=== PATIENT | male | born 1995 | race Caucasian/White ===

== ENCOUNTER 2016-05-19 12:21 | Emergency (ER) | payer OTHER ==
[2016-05-19] MEDS ORDERED: PERCOCET 5MG/325MG TAB As Ordered ONE ×2 (12:53→18:11)
[2016-05-19] MEDS ORDERED: KETOROLAC 30 MG/ML VIAL (J1885) As Ordered ONE (12:53)
[2016-05-19 13:26] LABS: BASO % 0.3 % (0.0-1.0); EOS # 0.2 K/mm3 (0.0-0.50); EOS % 1.7 % (0.0-3.0); LARGE UNSTAINED CELL # 0.2 K/mm3 (0.0-0.4); LARGE UNSTAINED CELL % 1.8 % (0.0-4.0); LYMPH # 2.8 K/mm3 (1.5-6.5); LYMPH % 25.3 % (24.0-44.0); MEAN CORPUSCULAR HEMOGLOBIN 29.5 pg (27.0-33.0); MEAN CORPUSCULAR HGB CONC 33.8 g/dl (32.0-36.5); MEAN CORPUSCULAR VOLUME 87.2 fl (80.0-96.0); MONO # 0.6 K/mm3 (0.0-0.8); MONO % 5.9 % (0.0-5.0); NEUTROPHILS # 6.7 K/mm3 (1.8-7.7); NEUTROPHILS % 65.1 % (36.0-66.0); PLATELET COUNT, AUTOMATED 342 k/mm3 (150-450); RED CELL DISTRIBUTION WIDTH 12.2 % (11.5-14.5); WHITE BLOOD COUNT 10.2 K/mm3 (4.0-10.0)
[2016-05-19 13:47] LABS: ALBUMIN/GLOBULIN RATIO 1.18 (1.00-1.93); ALKALINE PHOSPHATASE 94 U/L (45-117); ALT/SGPT 38 U/L (12-78); ANION GAP 9 MEQ/L (8-16); AST/SGOT 29 U/L (15-37); BILIRUBIN,DIRECT 0.1 MG/DL (0.0-0.2); BILIRUBIN,TOTAL 0.4 MG/DL (0.2-1.0); BLOOD UREA NITROGEN 15 MG/DL (7-18); CALCIUM LEVEL 9.3 MG/DL (8.5-10.1); CARBON DIOXIDE LEVEL 28 MEQ/L (21-32); CHLORIDE LEVEL 101 MEQ/L (98-107); CREATININE FOR GFR 1.49 MG/DL (0.70-1.30); GLOMERULAR FILTRATION RATE > 60.0 (>60); GLUCOSE, FASTING 124 MG/DL (70-105); POTASSIUM SERUM 3.7 MEQ/L (3.5-5.1); SODIUM LEVEL 138 MEQ/L (136-145); TOTAL PROTEIN 7.4 GM/DL (6.4-8.2)
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
--- NOTE | 2016-05-19 15:05 | REP ---
CT LUMBAR SPINE WITHOUT CONTRAST: HISTORY: Trauma. There is no disc bulge or herniation at the L1-2 through L5-S1 levels. The nerves exit the neural foramina without compression. A diffuse disc bulge is present at the L4-5 level. There is minimal compression of the thecal sac. The L4 nerves exit the neural foramina without compression. The L4-5 intervertebral disc is decreased in height consistent with disc degeneration. There is no acute fracture or subluxation. IMPRESSION: 1. Diffuse disc bulge at the L4-5 level with minimal thecal sac compression. 2. There is no acute fracture or subluxation. Signed by Javi Watson MD 05/19/2016 03:30 P
[2016-05-19] MEDS ORDERED: fentaNYL 100 MCG/2 ML INJECTION (J3010) As Ordered ONE ×2 (15:13→18:11)
--- NOTE | 2016-05-19 15:13 | REP ---
CT THORACIC SPINE WITHOUT CONTRAST: HISTORY: Trauma. There is no acute fracture or subluxation. There are old compression fractures of the T8 and 10 vertebral bodies with minimal height loss. There is no definite disc bulge or herniation. The spinal canal and the neural foramina are patent. There is loss of height of several mid and lower thoracic intervertebral discs. Vacuum phenomenon is present. Schmorl's nodes are present in the T8-10 vertebral bodies. Small anterior osteophytes are present in the lower thoracic spine. There are 13 rib bearing vertebral bodies. IMPRESSION: There is no acute fracture or subluxation. Signed by Javi Watson MD 05/19/2016 03:49 P
--- NOTE | 2016-05-19 19:05 | REP ---
MRI THORACIC SPINE WITHOUT CONTRAST: HISTORY: Injury. COMPARISON: CT 05/19/2016. The examination is very limited secondary to motion. A small central disc protrusion is present at the T7-8 level. There is minimal effacement of the thecal sac without spinal cord compression. The T7 neural foramina are patent. A small left paracentral disc protrusion is present at the T8-9 level. There is minimal effacement of the thecal sac without spinal cord compression. The T8 neural foramina are patent. There is no other disc bulge or herniation. The remaining neural foramina are patent. The spinal cord is normal in signal intensity. There is no intradural extramedullary lesion. There are old compression fractures of the T8 and T10 vertebral bodies with minimal height loss. Schmorl's nodes are present in the T8 through T10 vertebral bodies. Small anterior osteophytes are present in the lower thoracic spine. IMPRESSION: 1. Limited examination demonstrating small disc protrusions at the T7-8 and T8-9 levels without spinal cord compression. 2. Old T8 and T10 compression fractures with minimal height loss. Signed by Javi Watson MD 05/20/2016 08:05 A
--- NOTE | 2016-05-19 19:11 | REP ---
MRI LUMBAR SPINE WITHOUT CONTRAST: HISTORY: Injury. COMPARISON: CT 05/19/2016 Decreased signal intensity on T2-weighted images is present in the L4-5 intervertebral disc. The disc is decreased in height. These findings are consistent with disc degeneration. There is no disc bulge or herniation at the L1-2 through L3-4 and L5-S1 levels. The nerves exit the neural foramina without compression. A diffuse disc bulge is present at the L4-5 level. There is minimal compression of the thecal sac. The L4 nerves exit the neural foramina without compression. The conus medullaris is normal in appearance terminating at the level of the T12-L1 intervertebral disc. Normal signal intensity is present in the lumbar vertebral bodies. IMPRESSION: Diffuse disc bulge at the L4-5 level with minimal thecal sac compression. Signed by Javi Watson MD 05/20/2016 08:03 A
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
--- NOTE | 2016-05-19 20:21 | EDDOCDS ---
Physician Documentation [facility] Name: Reuben Soto Age: 21 yrs Sex: Male : 1995 Arrival Date: 05/19/2016 Time: 12:21 Bed 11 Private MD: Adriel Roberson M Disposition: 05/19 20:12 Critical Care: Critical care not applicable. le Disposition: 05/19/16 19:54 Discharged to Home/Self Care. Impression: Other intervertebral disc displacement, lumbar region - diffuse disc bulge L4-L5 with min. thecal sac compression, Other intervertebral disc displacement, thoracic region - small disc protrusion T7-T7 & T8-T9 without cord compression, Long QT syndrome, Abnormal finding of blood chemistry, unspecified - elevated creatinine. - Condition is Stable. - Discharge Instructions: Herniated Disk, Long QT Syndrome. - Prescriptions for Percocet 5- 325 mg Oral Tablet - take 1 tablet by ORAL route every 6 hours As needed MDD: 4 tabs; 20 tablet. - Medication Reconciliation, Work Release Form - 1 day, Local Pharmacy Hours, Paulette Johnson/[facility], [place] form. - Follow up: Paulette Johnson, [facility]; When: Tomorrow; Reason: Recheck today's complaints, Continuance of care. - Problem is new. - Symptoms have improved. - Notes: Return to the ED for loss of bowel/bladder control, numbness in genital area, inability to walk due to leg weakness/foot drop, feinting episodes, palpitations or any other concerns Historical: - Allergies: no known allergies; - Home Meds: 1. ibuprofen 800 mg Oral tab (Last dose: 05/19/2016 06:00) 2. Flexeril 10 mg Oral tab 1 tab (Last dose: 05/19/2016 06:00) - PMHx: none; - PSHx: left foot surgery; right wrist surgery; - Social history: Smoking status: Patient uses tobacco products, heavy tobacco smoker. No barriers to communication noted, The patient speaks fluent Icelandic, Speaks appropriately for age. - Family history: Not pertinent. - : The pt / caregiver states he / she is not on anticoagulants. Home medication list is obtained from the patient, Note patient was given medication by medics this am . - Exposure Risk Screening:: None identified. Vital Signs: 12:23 BP 169 / 93; Pulse 94; Resp 18 S; Temp 97.8(O); Pulse Ox 95% on R/A; Weight 81.65 kg / gr2 180.01 lbs (R); Height 5 ft. 11 in. (180.34 cm) (R); Pain 9/10; 14:13 Pain 8/10; ja5 14:13 Pain 8/10; ja5 16:22 Pain 7/10; ja5 16:36 BP 114 / 55; Pulse 76; Resp 16; Temp 97.6(TE); Pulse Ox 94% on R/A; Pain 7/10; ja5 18:44 Pain 7/10; ja5 18:44 Pain 7/10; ja5 20:10 BP 116 / 56; Pulse 74; Resp 16; Temp 97.9(O); Pulse Ox 100% on R/A; Pain 2/10; tm5 12:23 Body Mass Index 25.10 (81.65 kg, 180.34 cm) gr2 MDM: 12:51 IV Saline Lock ordered. le 12:51 ketorolac 30 mg IVP once ordered. le 12:51 Diazepam 5 mg IVP once ordered. le 12:51 oxyCODONE-acetaminophen 5 mg-325 mg 1 tabs PO once ordered. le 12:52 CT Spine,Thoracic W/o Contrast Ordered. EDMS 12:52 CT Spine, Lumbar W/o Contrast Ordered. EDMS 13:01 CBC with Diff Ordered. EDMS 13:01 BMP Ordered. EDMS 13:01 Liver Profile Ordered. EDMS 13:01 Lipase Ordered. EDMS 13:01 UA Ordered. EDMS 13:01 Chest, 2 View (pa\E\lat) Ordered. EDMS 13:01 ECG WITH READING ER PHYS+CARDIAG ordered. EDMS 13:35 CBC with Diff Reviewed. le 14:18 fentaNYL (PF) 50 mcg IVP once ordered. le 14:19 BMP Reviewed. le 14:19 UA Reviewed. le 14:19 Liver Profile Reviewed. le 14:19 Lipase Reviewed. le 14:19 Chest, 2 View (pa\E\lat) Reviewed. le 14:19 NS 0.9% 1000 ml IV at bolus once ordered. le 14:23 MRI Screening Tool - Place on chart, inform RN ordered. le 14:24 -MRI-Spine, Lumbar without contrast Ordered. EDMS 14:24 -MRI-Spine,Thoracic without contrast Ordered. EDMS 15:22 MRI Screening Tool - Place on chart, inform RN complete. lr2 15:46 Financial registration complete. zo 15:55 [facility] Payment Agreement was scanned into [employer] and attached to record. zo 17:12 REGULAR+DIET ordered. EDMS 18:08 fentaNYL (PF) 50 mcg IVP once ordered. le 18:08 oxyCODONE-acetaminophen 5 mg-325 mg 1 tabs PO once ordered. le Administered Medications: 13:08 Drug: ketorolac 30 mg [ketorolac 30 mg/mL (1 mL) injection solution (1 mL)] Route: IVP; ja5 Site: left antecubital; 14:13 Follow up: Pain 8/10 Adult ja5 13:08 Drug: Diazepam 5 mg [diazepam 5 mg/mL injection syringe (1 mL)] Route: IVP; Site: left ja5 antecubital; 13:08 Drug: oxyCODONE-acetaminophen 1 tabs [oxycodone-acetaminophen 5 mg-325 mg tablet (1 ja5 tabs)] Route: PO; 14:13 Follow up: Pain 8/10 Adult ja5 15:21 Drug: NS 0.9% 1000 ml [sodium chloride 0.9 % intravenous solution] Route: IV; Rate: 5 bolus; Site: left antecubital; 19:07 Follow up: IV Status: Completed infusion 5 15:22 Drug: fentaNYL (PF) 50 mcg [fentanyl (PF) 50 mcg/mL injection solution (1 mL)] Route: ja5 IVP; Site: left antecubital; 16:22 Follow up: Pain 7/10 Adult ja5 18:18 Drug: fentaNYL (PF) 50 mcg [fentanyl (PF) 50 mcg/mL injection solution (1 mL)] Route: ja5 IVP; Site: left antecubital; 18:44 Follow up: Pain 7/10 Adult ja5 18:18 Drug: oxyCODONE-acetaminophen 1 tabs [oxycodone-acetaminophen 5 mg-325 mg tablet (1 ja5 tabs)] Route: PO; 18:44 Follow up: Pain 7/10 Adult ja5 Signatures: Dispatcher [employer] EDMS Fabian Adame Lisa, IMMIGRATION CASE WORKER IMMIGRATION CASE WORKER Cristela Hanson RN RN hs1 Nu Wong, RN RN jc4 Katja Tang,RN RN tm5 Rosie Shabazz2 Nya June RN ja5 The chart was reviewed and I authenticate all verbal orders and agree with the evaluation and treatment provided.Attachments: 15:55 [facility] Payment Agreement zo MTDD
--- NOTE | 2016-05-20 21:38 | ECGEPIP ---
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
--- NOTE | 2016-05-21 21:22 | EDDOCDS ---
Physician Documentation [facility] Name: Reuben Soto Age: 21 yrs Sex: Male : 1995 Arrival Date: 05/19/2016 Time: 12:21 Bed 11 Private MD: Adriel Roberson M Disposition: 05/19 20:12 Critical Care: Critical care not applicable. le Disposition: 05/19/16 19:54 Discharged to Home/Self Care. Impression: Other intervertebral disc displacement, lumbar region - diffuse disc bulge L4-L5 with min. thecal sac compression, Other intervertebral disc displacement, thoracic region - small disc protrusion T7-T7 & T8-T9 without cord compression, Long QT syndrome, Abnormal finding of blood chemistry, unspecified - elevated creatinine. - Condition is Stable. - Discharge Instructions: Herniated Disk, Long QT Syndrome. - Prescriptions for Percocet 5- 325 mg Oral Tablet - take 1 tablet by ORAL route every 6 hours As needed MDD: 4 tabs; 20 tablet. - Medication Reconciliation, Work Release Form - 1 day, Local Pharmacy Hours, Paulette Johnson/[facility], [place] form. - Follow up: Paulette Johnson, [facility]; When: Tomorrow; Reason: Recheck today's complaints, Continuance of care. - Problem is new. - Symptoms have improved. - Notes: Return to the ED for loss of bowel/bladder control, numbness in genital area, inability to walk due to leg weakness/foot drop, feinting episodes, palpitations or any other concerns Historical: - Allergies: no known allergies; - Home Meds: 1. ibuprofen 800 mg Oral tab (Last dose: 05/19/2016 06:00) 2. Flexeril 10 mg Oral tab 1 tab (Last dose: 05/19/2016 06:00) - PMHx: none; - PSHx: left foot surgery; right wrist surgery; - Social history: Smoking status: Patient uses tobacco products, heavy tobacco smoker. No barriers to communication noted, The patient speaks fluent Nepalese, Speaks appropriately for age. - Family history: Not pertinent. - : The pt / caregiver states he / she is not on anticoagulants. Home medication list is obtained from the patient, Note patient was given medication by medics this am . - Exposure Risk Screening:: None identified. Vital Signs: 12:23 BP 169 / 93; Pulse 94; Resp 18 S; Temp 97.8(O); Pulse Ox 95% on R/A; Weight 81.65 kg / gr2 180.01 lbs (R); Height 5 ft. 11 in. (180.34 cm) (R); Pain 9/10; 14:13 Pain 8/10; ja5 14:13 Pain 8/10; ja5 16:22 Pain 7/10; ja5 16:36 BP 114 / 55; Pulse 76; Resp 16; Temp 97.6(TE); Pulse Ox 94% on R/A; Pain 7/10; ja5 18:44 Pain 7/10; ja5 18:44 Pain 7/10; ja5 20:10 BP 116 / 56; Pulse 74; Resp 16; Temp 97.9(O); Pulse Ox 100% on R/A; Pain 2/10; tm5 12:23 Body Mass Index 25.10 (81.65 kg, 180.34 cm) gr2 MDM: 12:51 IV Saline Lock ordered. le 12:51 ketorolac 30 mg IVP once ordered. le 12:51 Diazepam 5 mg IVP once ordered. le 12:51 oxyCODONE-acetaminophen 5 mg-325 mg 1 tabs PO once ordered. le 12:52 CT Spine,Thoracic W/o Contrast Ordered. EDMS 12:52 CT Spine, Lumbar W/o Contrast Ordered. EDMS 13:01 CBC with Diff Ordered. EDMS 13:01 BMP Ordered. EDMS 13:01 Liver Profile Ordered. EDMS 13:01 Lipase Ordered. EDMS 13:01 UA Ordered. EDMS 13:01 Chest, 2 View (pa\E\lat) Ordered. EDMS 13:01 ECG WITH READING ER PHYS+CARDIAG ordered. EDMS 13:35 CBC with Diff Reviewed. le 14:18 fentaNYL (PF) 50 mcg IVP once ordered. le 14:19 BMP Reviewed. le 14:19 UA Reviewed. le 14:19 Liver Profile Reviewed. le 14:19 Lipase Reviewed. le 14:19 Chest, 2 View (pa\E\lat) Reviewed. le 14:19 NS 0.9% 1000 ml IV at bolus once ordered. le 14:23 MRI Screening Tool - Place on chart, inform RN ordered. le 14:24 -MRI-Spine, Lumbar without contrast Ordered. EDMS 14:24 -MRI-Spine,Thoracic without contrast Ordered. EDMS 15:22 MRI Screening Tool - Place on chart, inform RN complete. lr2 15:46 Financial registration complete. zo 15:55 [facility] Payment Agreement was scanned into [employer] and attached to record. zo 17:12 REGULAR+DIET ordered. EDMS 18:08 fentaNYL (PF) 50 mcg IVP once ordered. le 18:08 oxyCODONE-acetaminophen 5 mg-325 mg 1 tabs PO once ordered. le 0208 12:20 T-Sheet-- Draft Copy was scanned into [employer] and attached to record. gb 12:20 ECG/EKG was scanned into [employer] and attached to record. gb Administered Medications: 05/19 13:08 Drug: ketorolac 30 mg [ketorolac 30 mg/mL (1 mL) injection solution (1 mL)] Route: IVP; ja5 Site: left antecubital; 14:13 Follow up: Pain 8/10 Adult [facility] 13:08 Drug: Diazepam 5 mg [diazepam 5 mg/mL injection syringe (1 mL)] Route: IVP; Site: left ja5 antecubital; 13:08 Drug: oxyCODONE-acetaminophen 1 tabs [oxycodone-acetaminophen 5 mg-325 mg tablet (1 ja5 tabs)] Route: PO; 14:13 Follow up: Pain 8/10 Adult 5 15:21 Drug: NS 0.9% 1000 ml [sodium chloride 0.9 % intravenous solution] Route: IV; Rate: ja5 bolus; Site: left antecubital; 19:07 Follow up: IV Status: Completed infusion 5 15:22 Drug: fentaNYL (PF) 50 mcg [fentanyl (PF) 50 mcg/mL injection solution (1 mL)] Route: ja5 IVP; Site: left antecubital; 16:22 Follow up: Pain 7/10 Adult ja5 18:18 Drug: fentaNYL (PF) 50 mcg [fentanyl (PF) 50 mcg/mL injection solution (1 mL)] Route: ja5 IVP; Site: left antecubital; 18:44 Follow up: Pain 7/10 Adult ja5 18:18 Drug: oxyCODONE-acetaminophen 1 tabs [oxycodone-acetaminophen 5 mg-325 mg tablet (1 ja5 tabs)] Route: PO; 18:44 Follow up: Pain 7/10 Adult ja5 Signatures: Dispatcher [employer] EDMS Melissa Green, Reg Reg gb Deep, Darcy Hernandez, RN EMBEDDED RN EMBEDDED Cristela Hanson RN RN hs1 Nu Wong RN RN jc4 Katja Tang RN RN tm5 Rosie Shabazz lr2 Nya June RN ja5 The chart was reviewed and I authenticate all verbal orders and agree with the evaluation and treatment provided.Attachments: 15:55 [facility] Payment Agreement zo 05/20 12:20 T-Sheet-- Draft Copy gb 12:20 ECG/EKG gb Chart Complete MTDD
--- NOTE | 2016-05-21 21:22 | EDDOCDS ---
Physician Documentation [facility] Name: Reuben Soto Age: 21 yrs Sex: Male : 1995 Arrival Date: 05/19/2016 Time: 12:21 Bed 11 Private MD: Adriel Roberson M Disposition: 05/19 20:12 Critical Care: Critical care not applicable. le Disposition: 05/19/16 19:54 Discharged to Home/Self Care. Impression: Other intervertebral disc displacement, lumbar region - diffuse disc bulge L4-L5 with min. thecal sac compression, Other intervertebral disc displacement, thoracic region - small disc protrusion T7-T7 & T8-T9 without cord compression, Long QT syndrome, Abnormal finding of blood chemistry, unspecified - elevated creatinine. - Condition is Stable. - Discharge Instructions: Herniated Disk, Long QT Syndrome. - Prescriptions for Percocet 5- 325 mg Oral Tablet - take 1 tablet by ORAL route every 6 hours As needed MDD: 4 tabs; 20 tablet. - Medication Reconciliation, Work Release Form - 1 day, Local Pharmacy Hours, Pualette Johnson/[facility] form. - Follow up: Paulette Johnson, [facility]; When: Tomorrow; Reason: Recheck today's complaints, Continuance of care. - Problem is new. - Symptoms have improved. - Notes: Return to the ED for loss of bowel/bladder control, numbness in genital area, inability to walk due to leg weakness/foot drop, feinting episodes, palpitations or any other concerns Historical: - Allergies: no known allergies; - Home Meds: 1. ibuprofen 800 mg Oral tab (Last dose: 05/19/2016 06:00) 2. Flexeril 10 mg Oral tab 1 tab (Last dose: 05/19/2016 06:00) - PMHx: none; - PSHx: left foot surgery; right wrist surgery; - Social history: Smoking status: Patient uses tobacco products, heavy tobacco smoker. No barriers to communication noted, The patient speaks fluent Monegasque, Speaks appropriately for age. - Family history: Not pertinent. - : The pt / caregiver states he / she is not on anticoagulants. Home medication list is obtained from the patient, Note patient was given medication by medics this am . - Exposure Risk Screening:: None identified. Vital Signs: 12:23 BP 169 / 93; Pulse 94; Resp 18 S; Temp 97.8(O); Pulse Ox 95% on R/A; Weight 81.65 kg / gr2 180.01 lbs (R); Height 5 ft. 11 in. (180.34 cm) (R); Pain 9/10; 14:13 Pain 8/10; ja5 14:13 Pain 8/10; ja5 16:22 Pain 7/10; ja5 16:36 BP 114 / 55; Pulse 76; Resp 16; Temp 97.6(TE); Pulse Ox 94% on R/A; Pain 7/10; ja5 18:44 Pain 7/10; ja5 18:44 Pain 7/10; ja5 20:10 BP 116 / 56; Pulse 74; Resp 16; Temp 97.9(O); Pulse Ox 100% on R/A; Pain 2/10; tm5 12:23 Body Mass Index 25.10 (81.65 kg, 180.34 cm) gr2 MDM: 12:51 IV Saline Lock ordered. le 12:51 ketorolac 30 mg IVP once ordered. le 12:51 Diazepam 5 mg IVP once ordered. le 12:51 oxyCODONE-acetaminophen 5 mg-325 mg 1 tabs PO once ordered. le 12:52 CT Spine,Thoracic W/o Contrast Ordered. EDMS 12:52 CT Spine, Lumbar W/o Contrast Ordered. EDMS 13:01 CBC with Diff Ordered. EDMS 13:01 BMP Ordered. EDMS 13:01 Liver Profile Ordered. EDMS 13:01 Lipase Ordered. EDMS 13:01 UA Ordered. EDMS 13:01 Chest, 2 View (pa\E\lat) Ordered. EDMS 13:01 ECG WITH READING ER PHYS+CARDIAG ordered. EDMS 13:35 CBC with Diff Reviewed. le 14:18 fentaNYL (PF) 50 mcg IVP once ordered. le 14:19 BMP Reviewed. le 14:19 UA Reviewed. le 14:19 Liver Profile Reviewed. le 14:19 Lipase Reviewed. le 14:19 Chest, 2 View (pa\E\lat) Reviewed. le 14:19 NS 0.9% 1000 ml IV at bolus once ordered. le 14:23 MRI Screening Tool - Place on chart, inform RN ordered. le 14:24 -MRI-Spine, Lumbar without contrast Ordered. EDMS 14:24 -MRI-Spine,Thoracic without contrast Ordered. EDMS 15:22 MRI Screening Tool - Place on chart, inform RN complete. lr2 15:46 Financial registration complete. zo 15:55 [facility] Payment Agreement was scanned into [employer] and attached to record. zo 17:12 REGULAR+DIET ordered. EDMS 18:08 fentaNYL (PF) 50 mcg IVP once ordered. le 18:08 oxyCODONE-acetaminophen 5 mg-325 mg 1 tabs PO once ordered. le 0208 12:20 T-Sheet-- Draft Copy was scanned into [employer] and attached to record. gb 12:20 ECG/EKG was scanned into [employer] and attached to record. gb Administered Medications: 05/19 13:08 Drug: ketorolac 30 mg [ketorolac 30 mg/mL (1 mL) injection solution (1 mL)] Route: IVP; ja5 Site: left antecubital; 14:13 Follow up: Pain 8/10 Adult [facility] 13:08 Drug: Diazepam 5 mg [diazepam 5 mg/mL injection syringe (1 mL)] Route: IVP; Site: left ja5 antecubital; 13:08 Drug: oxyCODONE-acetaminophen 1 tabs [oxycodone-acetaminophen 5 mg-325 mg tablet (1 ja5 tabs)] Route: PO; 14:13 Follow up: Pain 8/10 Adult 5 15:21 Drug: NS 0.9% 1000 ml [sodium chloride 0.9 % intravenous solution] Route: IV; Rate: ja5 bolus; Site: left antecubital; 19:07 Follow up: IV Status: Completed infusion 5 15:22 Drug: fentaNYL (PF) 50 mcg [fentanyl (PF) 50 mcg/mL injection solution (1 mL)] Route: ja5 IVP; Site: left antecubital; 16:22 Follow up: Pain 7/10 Adult ja5 18:18 Drug: fentaNYL (PF) 50 mcg [fentanyl (PF) 50 mcg/mL injection solution (1 mL)] Route: ja5 IVP; Site: left antecubital; 18:44 Follow up: Pain 7/10 Adult ja5 18:18 Drug: oxyCODONE-acetaminophen 1 tabs [oxycodone-acetaminophen 5 mg-325 mg tablet (1 ja5 tabs)] Route: PO; 18:44 Follow up: Pain 7/10 Adult ja5 Signatures: Dispatcher [employer] EDMS Melissa Green, Reg Reg gb Deep, Darcy Hernandez, SLICE PLUG CUTTER OPERATOR HELPER SLICE PLUG CUTTER OPERATOR HELPER Cristela Hanson RN RN hs1 Nu Wong RN RN jc4 Katja Tang RN RN tm5 Rosie Shabazz lr2 Nya June RN ja5 The chart was reviewed and I authenticate all verbal orders and agree with the evaluation and treatment provided.Attachments: 15:55 [facility] Payment Agreement zo 05/20 12:20 T-Sheet-- Draft Copy gb 12:20 ECG/EKG gb Chart Complete MTDD
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
== END 2016-05-19 20:20 | disposition home or self-care (01) ==
LOC: M ED 12:21
DX: M51.24 Other intervertebral disc displacement, thoracic region (principal); M51.27 Other intervertebral disc displacement, lumbosacral region; R94.4 Abnormal results of kidney function studies; F17.210 Nicotine dependence, cigarettes, uncomplicated; Z79.1 Long term (current) use of non-steroidal anti-inflammatories (NSAID); Z79.899 Other long term (current) drug therapy
CPT/HCPCS: 36415; 71020; 72128; 72131; 72146; 72148; 80048; 80076; 81001; 83690; 85025; 93005; 96361; 96374; 96375; 96376; 99284; J1885; J3010; J3360

== ENCOUNTER 2017-06-26 11:45 | Observation (INO) | payer OTHER ==
[2017-06-26 12:09] LABS: BEDSIDE GLUCOSE 155 MG/DL (70-105)
[2017-06-26] MEDS: NS 1,000 ML IV ×4 (12:10→21:57)
[2017-06-26 12:13] LABS: BASO # 0.1 10^3/uL (0.0-0.2); BASO % 0.3 % (0.0-1.0); HEMOGLOBIN 14.3 g/dl (14.0-18.0); IMMATURE GRANULOCYTE % 0.6 % (0-3.0); LYMPH # 3.8 10^3/uL (1.5-6.5); LYMPH % 18.1 % (24.0-44.0); MEAN CORPUSCULAR HEMOGLOBIN 30.9 pg (27.0-33.0); MEAN CORPUSCULAR HGB CONC 34.9 g/dl (32.0-36.5); MEAN CORPUSCULAR VOLUME 88.6 fl (80.0-96.0); MONO # 1.7 10^3/uL (0.0-0.8); MONO % 8.1 % (0.0-5.0); NEUTROPHILS # 15.3 10^3/uL (1.8-7.7); NEUTROPHILS % 72.9 % (36.0-66.0); PLATELET COUNT, AUTOMATED 439 10^3/uL (150-450); RED BLOOD COUNT 4.63 10^6/uL (4.30-6.10); RED CELL DISTRIBUTION WIDTH 12.3 % (11.5-14.5)
[2017-06-26 12:20] LABS: OSMOLALITY SERUM 384 MOSM/KG (275-295)
[2017-06-26 12:35] LABS: ALBUMIN 4.2 GM/DL (3.2-5.2); ALBUMIN/GLOBULIN RATIO 1.11 (1.00-1.93); ALKALINE PHOSPHATASE 102 U/L (45-117); ALT/SGPT 37 U/L (12-78); ANION GAP 16 MEQ/L (8-16); AST/SGOT 70 U/L (7-37); BILIRUBIN,DIRECT < 0.1 MG/DL (0.0-0.2); BILIRUBIN,TOTAL 0.2 MG/DL (0.2-1.0); BLOOD UREA NITROGEN 10 MG/DL (7-18); CALCIUM LEVEL 8.6 MG/DL (8.5-10.1); CARBON DIOXIDE LEVEL 23 MEQ/L (21-32); CHLORIDE LEVEL 103 MEQ/L (98-107); CREATININE FOR GFR 1.28 MG/DL (0.70-1.30); GLOMERULAR FILTRATION RATE > 60.0 (>60); GLUCOSE, FASTING 116 MG/DL (70-100); POTASSIUM SERUM 3.8 MEQ/L (3.5-5.1); SALICYLATE LEVEL 1.7 MG/DL (5.0-30.0); SODIUM LEVEL 142 MEQ/L (136-145); THYROID STIMULATING HORMONE 0.665 uIU/ML (0.358-3.740)
[2017-06-26 12:47] LABS: LACTIC ACID SEPSIS PROTOCOL 3.7 MMOL/L (0.4-2.0)
[2017-06-26 12:59] LABS: CPK CREATINE PHOSPHOKINASE 2476 U/L (39-308)
[2017-06-26 13:10] LABS: ACETAMINOPHEN LEVEL < 2.0 UG/ML (10.0-30.0)
[2017-06-26] MEDS ORDERED: ONDANSETRON 4MG/2ML VIAL (J2405) IV (13:45)
[2017-06-26 14:07] LABS: KETONE, URINE AUTO RFX NEGATIVE (NEGATIVE); LEUKOCYTE ESTERASE UR AUTO RFX NEGATIVE (NEGATIVE); NITRITE, URINE AUTO RFX NEGATIVE (NEGATIVE); RBC, URINE AUTO RFX 1 /HPF (0-3); SPECIFIC GRAVITY UR AUTO RFX 1.004 (1.002-1.035); SQUAM EPITHELIAL CELL UR AURFX 0 /HPF (0-6); WBC, URINE AUTO RFX 0 /HPF (0-3)
[2017-06-26 14:22] LABS: AMPHETAMINES LEVEL URINE NEGATIVE (NEGATIVE); BARBITURATES URINE NEGATIVE (NEGATIVE); BENZODIAZEPINES URINE NEGATIVE (NEGATIVE); CANNABINOIDS URINE NEGATIVE (NEGATIVE); COCAINE METABOLITE URINE POSITIVE (NEGATIVE); METHADONE URINE NEGATIVE (NEGATIVE); OPIATES URINE NEGATIVE (NEGATIVE); PHENCYCLIDINE URINE NEGATIVE (NEGATIVE)
[2017-06-26] MEDS: MULTIVITAMIN -ADULT INJECTION 10 ML, THIAMINE INJection 100 MG, FOLIC ACID 1 MG in NS 1... IV (15:00)
[2017-06-26] MEDS: FOLIC ACID 1 MG TAB PO (17:25)
[2017-06-26] MEDS: ACETAMINOPHEN TAB 650MG DOSE (2X325MG) PO (18:20)
[2017-06-26] MEDS: ENOXAPARIN 40 MG/0.4 ML SYRINGE (J1650) SC (21:00)
[2017-06-27 05:59] LABS: HEMATOCRIT 37.5 % (42.0-52.0); HEMOGLOBIN 12.5 g/dl (14.0-18.0); MEAN CORPUSCULAR HEMOGLOBIN 30.4 pg (27.0-33.0); MEAN CORPUSCULAR HGB CONC 33.3 g/dl (32.0-36.5); MEAN CORPUSCULAR VOLUME 91.2 fl (80.0-96.0); RED BLOOD COUNT 4.11 10^6/uL (4.30-6.10); RED CELL DISTRIBUTION WIDTH 12.4 % (11.5-14.5); WHITE BLOOD COUNT 8.3 10^3/uL (4.0-10.0)
[2017-06-27] MEDS: NS 1,000 ML IV (06:02)
[2017-06-27 06:08] LABS: PLATELET COUNT, AUTOMATED 266 10^3/uL (150-450)
[2017-06-27 06:35] LABS: ALBUMIN/GLOBULIN RATIO 0.91 (1.00-1.93); ALKALINE PHOSPHATASE 84 U/L (45-117); ALT/SGPT 31 U/L (12-78); ANION GAP 6 MEQ/L (8-16); AST/SGOT 62 U/L (7-37); BILIRUBIN,TOTAL 0.4 MG/DL (0.2-1.0); BLOOD UREA NITROGEN 11 MG/DL (7-18); CALCIUM LEVEL 8.6 MG/DL (8.5-10.1); CARBON DIOXIDE LEVEL 28 MEQ/L (21-32); CHLORIDE LEVEL 109 MEQ/L (98-107); CPK CREATINE PHOSPHOKINASE 1974 U/L (39-308); CREATININE FOR GFR 1.11 MG/DL (0.70-1.30); GLOMERULAR FILTRATION RATE > 60.0 (>60); GLUCOSE, FASTING 90 MG/DL (70-100); MAGNESIUM LEVEL 2.3 MG/DL (1.8-2.4); POTASSIUM SERUM 4.4 MEQ/L (3.5-5.1); SODIUM LEVEL 143 MEQ/L (136-145); TOTAL PROTEIN 6.3 GM/DL (6.4-8.2)
[2017-06-27] MEDS: THIAMINE 100 MG TAB PO (07:57)
[2017-06-27] MEDS: FOLIC ACID 1 MG TAB PO (07:57)
== END 2017-06-27 11:16 | disposition home or self-care (01) ==
LOC: M ED 11:45 → M ED INP 13:39 → M MSPAV 17:01
DX: F10.129 Alcohol abuse with intoxication, unspecified (principal); F14.10 Cocaine abuse, uncomplicated; M62.82 Rhabdomyolysis; E87.2 Acidosis; R74.0 Nonspecific elevation of levels of transaminase and lactic acid dehydrogenase [LDH]; D72.829 Elevated white blood cell count, unspecified; B34.0 Adenovirus infection, unspecified; F17.210 Nicotine dependence, cigarettes, uncomplicated; Y90.1 Blood alcohol level of 20-39 mg/100 ml; M79.81 Nontraumatic hematoma of soft tissue
CPT/HCPCS: J3411